=== PATIENT | female | born 1970 | race Two or more races ===

== ENCOUNTER 2018-06-15 09:09 | Outpatient (CLI) | payer OTHER | END 2018-06-15 09:13 | disposition home or self-care (01) | LOC: SONOGRAMA 09:09 | DX: E04.1 Nontoxic single thyroid nodule (principal) ==

== ENCOUNTER 2023-11-03 17:31 | Emergency (ER) | payer OTHER ==
[~2023-11-03] VITALS: Ht 162.6 cm; Wt 92.5 kg
== END 2023-11-03 18:54 | disposition home or self-care (01) ==
LOC: ER 17:32
DX: L03.312 Cellulitis of back [any part except buttock and flank] (principal); L02.212 Cutaneous abscess of back [any part, except buttock and flank]; Z88.8 Allergy status to other drugs, medicaments and biological substances